=== PATIENT | male | born 1960 | race Caucasian/White ===

== ENCOUNTER 2021-05-03 13:13 | Emergency (ER) | payer OTHER, SELFPAY ==
[2021-05-03] VITALS (15 sets, daily range): BP systolic 146–181; BP diastolic 70–100; PULSE 69–80; RESP 14–20; O2SAT 97–100; BMI 27.6
--- NOTE | 2021-05-03 13:20 | ED_ITS ---
HPI - Weakness General Chief complaint: Diabetic Problem Stated complaint: Diabetic probelm, BG 35 Time Seen by Provider: 05/03/21 13:16 History of Present Illness HPI Narrative: 60-year-old male nonsmoker with history of insulin-dependent diabetes presents by EMS for evaluation of confusion and lethargy and low blood sugar. Patient states that he had been in his normal state of health and went to bed feeling great. He denies any change in his diet or medication regimen including dosing. He woke up feeling fine and went about his day, he had a femur jelly sandwich and blueberries which is normal for him. He is a bit unclear as to how things moved along but EMS was activated by a local business who found him unresponsive in his truck. His blood glucose was checked and was 35. He was given glucose EN route and woke up and felt much better though still not at his baseline by arrival Related Data Allergies Allergy/AdvReac Type Severity Reaction Status Date / Time Penicillins Allergy Verified 05/03/21 13:19 Review of Systems Review of Systems Narrative: GENERAL: See HPI HEENT: Denies sinus pain, ear pain, sore throat, difficulty swallowing, dizziness. RESPIRATORY: Denies dyspnea, cough, wheezing, hemoptysis, sputum. CARDIOVASCULAR: Denies chest pain, palpitations, orthopnea, edema, GASTROINTESTINAL: Denies nausea, vomiting, abdominal pain, diarrhea, constipation, melena. : Denies dysuria, frequency, incontinence, hematuria, urinary retention. MUSCULOSKELETAL: denies weakness, joint pain, or bony pain SKIN: Denies rash, skin lesions, or other NEUROLOGIC: Denies weakness, headache, numbness, change in speech, confusion, seizures, incoordination. PSYCHIATRIC: No concerning psychosocial issues. 12 point review of systems is negative except for those stated above Patient History Social History Smoking Status: Unknown if ever smoked Exam Narrative Exam Narrative: GENERAL: [60 year old patient appears stated age. Well-developed patient, in mil d distress. A bit shaky, clearly does not feel great HEAD: Atraumatic. Normocephalic. EYES: Pupils equal round and reactive. Extraocular motions intact. No scleral icterus. No injection or drainage. ENT: Nose without bleeding, purulent drainage. Throat without erythema, tonsillar hypertrophy or exudate. Airway patent. NECK: Trachea midline. Non tender CARDIOVASCULAR: Regular rate and rhythm without murmurs, gallops, or rubs. RESPIRATORY: Clear to auscultation. Breath sounds equal bilaterally. No wheezes, rales, or rhonchi. GASTROINTESTINAL: Abdomen soft, non-tender, nondistended. EXTREMITIES: No edema or joint tenderness. BACK: Nontender without deformity or crepitance. No flank tenderness. NEURO: AOx3. SKIN: No rash or erythema of visible areas Initial Vital Signs Initial Vital Signs: Vital Signs Pulse Rate 77 05/03/21 13:15 Respiratory Rate 14 05/03/21 13:15 Blood Pressure 169/92 H 05/03/21 13:15 Pulse Oximetry 99 05/03/21 13:15 Course Orders Ordered: ED Orders 05/03/21 13:38 XR chest 1V Stat 05/03/21 15:10 Complete Blood Count AUTO DIFF Stat Comprehensive Metabolic Panel Stat Magnesium Stat Troponin & CK Cardiac Panel Stat 05/03/21 15:35 Urine Culture Stat Urine Microscopic Stat 05/03/21 15:53 EKG-12 Lead Stat Discontinued Medications Lactated Ringer's (Lactated Ringers) 1,000 mls @ 1,000 mls/hr IV BOLUS ONE Stop: 05/03/21 14:36 Last Infusion: 05/03/21 15:22 Dose: 0 mls/hr Documented by: Admin: 05/03/21 13:44 Dose: 1,000 mls/hr Documented by: MADDI Vital Signs Vital signs: Vital Signs - 8 hr 05/03/21 13:15 05/03/21 13:18 05/03/21 13:30 Pulse Rate 77 77 78 Respiratory Rate 14 17 Blood Pressure 169/92 H 169/92 H 151/71 H Pulse Oximetry 99 99 97 05/03/21 13:49 05/03/21 14:00 05/03/21 14:01 Pulse Rate 79 78 79 Respiratory Rate 18 18 Blood Pressure 146/80 H 148/70 H Pulse Oximetry 98 100 100 05/03/21 14:30 05/03/21 15:00 05/03/21 15:30 Pulse Rate 72 69 80 Respiratory Rate 14 14 20 Blood Pressure 154/90 H 161/87 H Pulse Oximetry 98 98 05/03/21 15:33 05/03/21 16:00 05/03/21 16:01 Pulse Rate 74 71 72 Respiratory Rate 20 20 20 Blood Pressure 179/88 H 174/84 H Pulse Oximetry 99 99 99 05/03/21 16:30 05/03/21 17:00 05/03/21 17:40 Pulse Rate 79 77 74 Respiratory Rate 17 19 Blood Pressure 181/88 H 181/88 H 180/100 H Pulse Oximetry 100 99 99 MDM - Weakness Lab Data Result diagrams: 05/03/21 15:10 05/03/21 15:10 Labs: Lab Results 05/03/21 05/03/21 05/03/21 Range/Units 15:10 15:10 15:35 WBC 9.1 (4.5-11.0) X10^3/uL RBC 4.19 L (4.5-5.9) X10^6/uL Hgb 12.5 L (13.5-17.5) g/dL Hct 37.4 L (41-53) % MCV 89.3 (80-100) fL MCH 29.9 (26-34) PG MCHC 33.5 (30-36) % RDW 13.9 (11.6-14.8) % Plt Count 185 (150-400) X10^3/uL Neut % (Auto) 83.5 H (50-75) % Lymph % (Auto) 10.9 L (25-40) % Kaufman % (Auto) 5.2 (3-14) % Eos % (Auto) 0.3 L (2-4) % Baso % (Auto) 0.1 (0-2) % Neut # (Auto) 7600 H (2690-7250) /uL Lymph # (Auto) 1000 L (3188-6389) /uL Kaufman # (Auto) 500 (0-900) /uL Eos # (Auto) 0 (0-450) /uL Baso # (Auto) 0 (0-100) /uL Sodium 139 (137-145) mmol/L Potassium 4.8 (3.4-5.1) mmol/L Chloride 104 (98-107) mmol/L Carbon Dioxide 31 (22-32) mmol/L BUN 39 H (9-20) mg/dL Creatinine 1.45 H (0.66-1.25) mg/dL Estimated GFR 50.0 L (>60) mL/min BUN/Creatinine Ratio 26.9 H (6-22) Glucose 121 H (70-100) mg/dL Calcium 9.6 (8.4-10.2) mg/dL Magnesium 1.9 (1.6-2.3) mg/dL Total Bilirubin 0.4 (0.2-1.3) mg/dL AST 30 (17-59) IU/L ALT 21 (<50) IU/L Alkaline Phosphatase 56 (38-126) U/L Total Creatine Kinase 117 (55-170) U/L CK-MB (CK-2) 3.68 H (<2.37) ng/mL CK-MB (CK-2) Rel Index 3.1 (1.5-5.0) % Troponin I < 0.012 (0.01-0.034) ng/mL Total Protein 6.8 (6.3-8.2) g/dL Albumin 4.0 (3.5-5.0) g/dL Globulin 2.8 (1.7-4.1) g/dL Albumin/Globulin Ratio 1.4 (1.0-2.8) Urine RBC None seen (0-5/HPF) Urine WBC 5-10/hpf H (0-5/HPF) Amorphous Sediment 1+ Urine Bacteria None seen (None) Hyaline Casts 1-5/lpf (None) Ur Culture Indicated? Culture not indicate Point of Care Testing Glucose POC 204 Urine Dip Bedside Urine Glucose 1000 mg/dl Bedside Urine Bilirubin - Negative Bedside Urine Ketone - Negative Urine Specific [place] 1.030 Bedside Urine Occult Blood - Negative Bedside Urine pH 6 Bedside Urine Protein +/- 15 Bedside Urine Urobilinogen - Negative Bedside Urine Nitrite - Negative Bedside Urine Leukocytes - Negative Esterase MDM Narrative Medical decision making narrative: Patient with reassuring history and physical exam as well as response to therapies. He had an episode of low blood sugar this morning that responded well to orals. He was observed for 4 hours and had no repeat drops. Over the duration he felt normal and at his baseline. Labs were very reassuring. He changed his diet this morning slightly and normally would have appeared range ice and much as well as an apple but this morning did not have the ampulla only a few blueberries. He has been given extensive return precautions and questions have been answered to his apparent satisfaction Discharge Plan Departure Patient Disposition: Home Clinical Impression: Hypoglycemia Instructions: DI for Hypoglycemia Activity Restrictions/Additional Instructions: *You have been diagnosed with [episode of hypoglycemia, likely due to a subtle change in your diet. As we discussed, your blood work and EKG are very reassuring *What to do: *Please continue to take your regular medications as directed. [ ] New medication prescriptions sent to your pharmacy: [ ] [ ] New medication written as a paper prescription [x ] No new medications given *Please follow up with your primary care provider in 2-3 days, call for an appointment. Let them know you were seen in the Emergency Department and that we ask that you be seen in follow up. We will electronically transmit a record of today's note if your PCP is in our system *If you do not have a primary care provider please contact the [facility] Resource line at [phone]. They will ask some questions about your medical history and help get you set up with a doctor in the community. *Return to Emergency Department if you should have any new, worsening or concerning symptoms, such as [fever greater than 101 F, shaking chills, worsening pain, persistent vomiting or other bothersome symptoms]
--- NOTE | 2021-05-03 13:38 | DI.RAD.S_ITS ---
PROCEDURE: XR CHEST 1V INDICATIONS: fatigue, weakness TECHNIQUE: One view of the chest was acquired. COMPARISON: None. FINDINGS: Surgical changes and devices: Left AC joint debridement. Overlying monitoring wires.. Lungs and pleura: Lungs are clear. No pleural effusions or pneumothorax. Mediastinum: Mediastinal contours appear normal. Heart size is normal. Bones and chest wall: No suspicious bony lesions. Overlying soft tissues appear unremarkable. IMPRESSION: No acute cardiopulmonary disease. Dictated by: Marjorie Clark M.D. on 05/03/2021 at 14:24 Approved by: Marjorie Clark M.D. on 05/03/2021 at 14:24
--- NOTE | 2021-05-03 13:40 | PC.NURSE ---
ate 1/2 egg salad sandwhic, cheesestick, yogurt. now eating a diabetic emal tray.
[2021-05-03] MEDS: LACTATED RINGERS 1,000 ML 1000 ML IV (13:44)
[2021-05-03 15:32] LABS: Alanine Aminotransferase 21 IU/L (<50); Albumin Globulin Ratio 1.4 (1.0-2.8); Alkaline Phosphatase 56 U/L (38-126); Aspartate Aminotransferase 30 IU/L (17-59); BUN Creatinine Ratio 26.9 (6-22); Bilirubin Total 0.4 mg/dL (0.2-1.3); Blood Urea Nitrogen 39 mg/dL (9-20); Calcium 9.6 mg/dL (8.4-10.2); Carbon Dioxide 31 mmol/L (22-32); Chloride 104 mmol/L (98-107); Creatine Kinase 117 U/L (55-170); Globulin 2.8 g/dL (1.7-4.1); Glucose 121 mg/dL (70-100); HEMOLYSIS < 15 (0-50); Magnesium 1.9 mg/dL (1.6-2.3); Potassium 4.8 mmol/L (3.4-5.1); Sodium 139 mmol/L (137-145); Total Protein 6.8 g/dL (6.3-8.2)
[2021-05-03 15:38] LABS: Add Manual Diff / Slide Review NO; Basophils Absolute Auto 0 /uL (0-100); Basophils Percent Auto 0.1 % (0-2); Eosinophils Absolute Auto 0 /uL (0-450); Eosinophils Percent Auto 0.3 % (2-4); Hematocrit 37.4 % (41-53); Hemoglobin 12.5 g/dL (13.5-17.5); Lymphocytes Absolute Auto 1000 /uL (1100-4500); Lymphocytes Percent Auto 10.9 % (25-40); Mean Corpuscular HGB Conc 33.5 % (30-36); Mean Corpuscular Hemoglobin 29.9 PG (26-34); Mean Corpuscular Volume 89.3 fL (80-100); Monocytes Absolute Auto 500 /uL (0-900); Monocytes Percent Auto 5.2 % (3-14); Neutrophils Absolute Auto 7600 /uL (1500-7000); Neutrophils Percent Auto 83.5 % (50-75); Platelet Count 185 X10^3/uL (150-400); Red Blood Cell Count 4.19 X10^6/uL (4.5-5.9); Red Cell Distribution Width 13.9 % (11.6-14.8); White Blood Cell Count 9.1 X10^3/uL (4.5-11.0)
[2021-05-03 15:42] LABS: Troponin I < 0.012 ng/mL (0.01-0.034)
[2021-05-03 15:52] LABS: CKMB % Relative Index 3.1 % (1.5-5.0); Creatine Kinase MB 3.68 ng/mL (<2.37)
[2021-05-03 15:52] LABS: Amorphous Sediment Urine 1+; Bacteria Urine None Seen; Hyaline Casts Urine 1-5/LPF; RBC Urine None Seen (0-5/HPF); WBC Urine 5-10/HPF (0-5/HPF)
== END 2021-05-03 17:49 | disposition home or self-care (01) ==
PROVIDERS: Emergency Provider Emergency Medicine
DX: E11.649 Type 2 diabetes mellitus with hypoglycemia without coma (principal); Z79.4 Long term (current) use of insulin
CPT/HCPCS: 36415; 71045; 80053; 81003; 81015; 82550; 82553; 82962; 83735; 84484; 85025; 87086; 93005; 93010; 96360; 96361; 99284